=== PATIENT | male | born 1950 | race Caucasian/White ===

== ENCOUNTER 2016-09-22 07:45 | Day surgery (SDC) | payer BC ==
[~2016-09-22 07:45] MED LIST: Acetaminophen TAB* 325 MG PO PRN; Buffered Lidocaine 1% SYR 3ML* 3 ML/SYR SYRINGE INTRADERM ONE; Midazolam* 1 MG/ML 5 ML VIAL (5 MG) ONE; fentaNYL* 50 MCG/ML 2 ML VIAL (100 MCG VIAL) ONE
[2016-09-22] MEDS ORDERED: Cyclopentolate 1% OPTH.SOL* 2 ML BTL ONE (10:29)
[2016-09-22] MEDS ORDERED: Flurbiprofen 0.03% OPTH.SOL* 2.5 ML BTL ONE (10:29)
[2016-09-22] MEDS ORDERED: Tropicamide 1% OPTH.SOL* BTL ONE (10:29)
[2016-09-22] MEDS ORDERED: Neomycin/Polymy/Dex OPHTH.OIN* 3.5 GM ONE (10:29)
[2016-09-22] MEDS ORDERED: Lidocaine 1% MPF* 2 ML VIAL ONE (10:29)
[2016-09-22] MEDS ORDERED: Phenylephrine 2.5% OPTH.SOL* 2 ML BTL ONE (10:29)
[2016-09-22] MEDS ORDERED: Tetracaine 0.5% OPTH.SOL 4 ML* 1 DROP BTL ONE (10:29)
[2016-09-22 10:35] VITALS: BP 121/81
--- NOTE | 2016-09-22 23:52 | OP ---
DATE OF OPERATION: 09/22/16 [facility] DATE OF : 54 SURGEON: Dr. Adam Toth. DUCT LAYER HELPER: None. ANESTHESIOLOGIST: Raphael De Los Santos MD ANESTHESIA: Topical with intravenous sedation. PRE-OP DIAGNOSIS: Cataract, right eye. POST-OP DIAGNOSIS: Cataract, right eye. OPERATIVE PROCEDURE: Phacoemulsification and cataract extraction with posterior chamber intraocular lens implant, right eye. COMPLICATIONS: None. BLOOD LOSS: None. DESCRIPTION OF PROCEDURE: The patient was brought to the operating room and received a small amount of intravenous sedation. A drop of tetracaine was placed in his right eye. He was prepped and draped in the usual sterile fashion for ophthalmic surgery and attention was directed to the right eye where a speculum was placed. A paracentesis was created at the 11 o'clock position and 0.1 cc of 1 percent preservative-free lidocaine was injected into the anterior chamber followed by DisCoVisc. The eye was digitally stabilized while a 2.75 mm keratome was used to create a triplanar clear corneal incision at the 9 o'clock position. A continuous curvilinear capsulorrhexis was created with a cystotome and Utrata forceps. BSS on a cannula was used to hydrodissect the lens from the capsule. Phacoemulsification was performed in a divide-and- conquer technique to create four fragments which were removed. Residual cortical material was removed with irrigation and aspiration. DisCoVisc was used to inflate the capsular bag and an AU00T0 19.5 diopter lens was folded and inserted into the capsular bag. DisCoVisc was removed using irrigation and aspiration. BSS on a cannula was used to hydrate the corneal stroma and seal the wound. At the end of the case the pupil was round and the lens was centered. The eye was of normal pressure and the wound was water tight. The speculum was removed and topical Maxitrol ointment was placed on the surface of the eye. The eye was closed, patched and shielded and the patient was sent to the recovery room in stable condition with post operative instructions and follow-up appointment given. [id number] #: [id number] MTDD
== END 2016-09-22 10:04 | disposition home or self-care (01) ==
LOC: OREAST 07:45
PROVIDERS: ATTEND Ophthalmology
DX: H25.13 Age-related nuclear cataract, bilateral (principal); H25.041 Posterior subcapsular polar age-related cataract, right eye; Z86.73 Personal history of transient ischemic attack (TIA), and cerebral infarction without residual deficits; Z88.8 Allergy status to other drugs, medicaments and biological substances; K21.9 Gastro-esophageal reflux disease without esophagitis; N40.0 Benign prostatic hyperplasia without lower urinary tract symptoms; G47.33 Obstructive sleep apnea (adult) (pediatric); E04.9 Nontoxic goiter, unspecified; E78.4 Other hyperlipidemia; L57.0 Actinic keratosis; F52.21 Male erectile disorder; F17.290 Nicotine dependence, other tobacco product, uncomplicated
CPT/HCPCS: A9270-GY; J2250; J3010; V2632

== ENCOUNTER 2018-04-13 08:29 | Emergency (ER) | payer BC, MEDICARE ==
[2018-04-13 08:59] VITALS: BP 132/82
--- NOTE | 2018-04-13 10:09 | UC ---
Hand/Wrist HPI - HPI Summary HPI Summary: The patient is a 67-year-old male who fell and injured his right wrist yesterday. He is right hand dominant. He has never injured his right wrist in the past. He has minimal pain at rest. His pain markedly increases with dorsiflexion of the wrist. - History Of Current Complaint Chief Complaint: UCUpperExtremity Stated Complaint: WRIST INJURY Time Seen by Provider: 04/13/18 09:42 Hx Obtained From: Patient Onset/Duration: Sudden Onset, Lasting Hours Severity Initially: Severe Severity Currently: Mild Pain Intensity: 3 - 8 with movement Pain Scale Used: 0-10 Numeric Character Of Pain: Aching Aggravating Factor(s): Movement Alleviating Factor(s): Rest Associated Signs And Symptoms: Positive: Swelling Related History: Dominant Hand Right Hands: 1 - tender/swollen, no snuff box tenderness - Allergies/Home Medications Allergies/Adverse Reactions: Allergies Allergy/AdvReac Type Severity Reaction Status Date / Time phenobarbital AdvReac Mild "frozen Verified 04/13/18 08:59 shoulder syndrome" Home Medications: Home Medications NK [No Home Medications Reported] 04/13/18 [History Confirmed 04/13/18] PMH/Surg Hx/FS Hx/Imm Hx Previously Healthy: Yes Neurological History: Other Other Neurological History: AVM - Surgical History Surgical History: Yes Surgery Procedure, Year, and Place: avm REMOVED 2000. inguinal HERNIA REPAIR 1981. tonsillectomy as baby - Family History Known Family History: Positive: Cardiac Disease, Hypertension - Social History Alcohol Use: Daily Alcohol Amount: 4-5 wine per day Substance Use Type: None Smoking Status (MU): Former Smoker Type: Cigars Amount Used/How Often: daily Have You Smoked in the Last Year: Yes - Occassional cigar. When Did the Patient Quit Smoking/Using Tobacco: quits every 6 months - only smokes a pipe Review of Systems Constitutional: Negative Skin: Negative Eyes: Negative ENT: Negative Respiratory: Negative Cardiovascular: Negative Gastrointestinal: Negative Genitourinary: Negative Motor: Negative Neurovascular: Negative Musculoskeletal: Arthralgia Neurological: Negative Psychological: Negative All Other Systems Reviewed And Are Negative: Yes Physical Exam Triage Information Reviewed: Yes Appearance: Well-Appearing, No Pain Distress, Well-Nourished Vital Signs: Initial Vital Signs Temp 97.5 F 04/13/18 08:55 Pulse 78 04/13/18 08:55 Resp 14 04/13/18 08:55 BP 132/82 04/13/18 08:55 Pulse Ox 97 04/13/18 08:55 Eyes: Positive: Conjunctiva Clear ENT: Positive: Hearing grossly normal. Negative: Nasal congestion, Nasal drainage, Trismus, Muffled voice, Hoarse voice Neck: Positive: Supple Respiratory: Positive: Lungs clear, Normal breath sounds, No respiratory distress Cardiovascular: Positive: RRR, No Murmur Musculoskeletal: Positive: ROM Limited @ - dorsum right wristright wrist limited dorsiflexion, Edema @ Neurological: Positive: Alert Psychological Exam: Normal Skin Exam: Normal Diagnostics - Radiology No standard instances Xray Interpretation: Positive (See Comments) - 1. NO FRACTURE IS SEEN. 2. THERE IS WIDENING OF THE SCAPHOLUNATE JOINT SPACE SUGGESTIVE OF A SCAPHOLUNATE LIGAMENT TEAR. THIS COULD BE FURTHER EVALUATED WITH AN MRI OF [facility] Radiology Interpretation Completed By: Radiologist Hand/Wrist Course/Dx - Differential Dx/Diagnosis Provider Diagnoses: right wrist scapho-lunate ligament tear Discharge - Sign-Out/Discharge Documenting (check all that apply): Patient Departure All imaging exams completed and their final reports reviewed: Yes - Discharge Plan Condition: Stable Disposition: HOME Patient Education Materials: Wrist Sprain (ED) Referrals: Elvis Mott MD [Medical Doctor] - As Soon As Possible Additional Instructions: your XR and examine are consistent with a scapho-lunate ligament tear you need to see an orthopedist for follow up splint tylenol or advil for pain - Billing Disposition and Condition Condition: STABLE Disposition: Home
--- NOTE | 2018-04-13 10:19 | RAD ---
INDICATION: Right wrist injury. TECHNIQUE: 3 views of the right wrist were obtained. FINDINGS: There is widening of the scapholunate joint space. No fracture is seen. There is slight dorsal tilting of the lunate bone. IMPRESSION: 1. NO FRACTURE IS SEEN. 2. THERE IS WIDENING OF THE SCAPHOLUNATE JOINT SPACE SUGGESTIVE OF A SCAPHOLUNATE LIGAMENT TEAR. THIS COULD BE FURTHER EVALUATED WITH AN MRI OF THE WRIST.
== END 2018-04-13 10:43 | disposition home or self-care (01) ==
LOC: UCEAST 08:29
DX: S63.591A Other specified sprain of right wrist, initial encounter (principal); Z88.8 Allergy status to other drugs, medicaments and biological substances; Z87.891 Personal history of nicotine dependence; X58.XXXA Exposure to other specified factors, initial encounter; Y92.9 Unspecified place or not applicable
CPT/HCPCS: 99212; G0463

== ENCOUNTER 2018-06-07 09:32 | Day surgery (SDC) | payer MEDICARE ==
[~2018-06-07 09:32] MED LIST changes: -Acetaminophen TAB* 325 MG PO PRN; +Buffered Lidocaine 0.9% SYRIN* 5 ML/SYR SYRINGE INTRADERM ONE; -Buffered Lidocaine 1% SYR 3ML* 3 ML/SYR SYRINGE INTRADERM ONE; -Midazolam* 1 MG/ML 5 ML VIAL (5 MG) ONE; -fentaNYL* 50 MCG/ML 2 ML VIAL (100 MCG VIAL) ONE
[2018-06-07] MEDS ORDERED: Midazolam* 1 MG/ML 2 ML VIAL (2 MG) ONE ×3 (11:11→11:18)
[2018-06-07] MEDS ORDERED: Propofol* 10 MG/ML 20 ML BTL ONE (11:21)
[2018-06-07] MEDS ORDERED: Lidocaine 2% PF * 5 ML VIAL ONE (11:21)
[2018-06-07] MEDS ORDERED: fentaNYL* 50 MCG/ML 2 ML VIAL (100 MCG VIAL) ONE (11:30)
[2018-06-07 12:02] VITALS: BP 125/88
[2018-06-07] MEDS ORDERED: Neomycin/Polymy/Dex OPHTH.OIN* 3.5 GM ONE (12:14)
[2018-06-07] MEDS ORDERED: Phenylephrine 2.5% OPTH.SOL* 2 ML BTL ONE (12:14)
[2018-06-07] MEDS ORDERED: Tetracaine 0.5% OPTH.SOL 4 ML* 1 DROP BTL ONE (12:14)
[2018-06-07] MEDS ORDERED: Lidocaine 1%* 5 ML VIAL ONE (12:14)
[2018-06-07] MEDS ORDERED: Ketorolac 0.5% OPHTH (NF) 0.5 % 5 ML BTL ONE (12:14)
[2018-06-07] MEDS ORDERED: Tropicamide 1% OPTH.SOL* BTL ONE (12:14)
[2018-06-07] MEDS ORDERED: Cyclopentolate 1% OPTH.SOL* 2 ML BTL ONE (12:14)
--- NOTE | 2018-06-08 07:01 | OP ---
DATE OF OPERATION: 06/07/18 [facility] DATE OF : 54. SURGEON: Dr. Adam Toth. CREW SCHEDULER: None. ANESTHESIA: Topical with intravenous sedation. PRE-OP DIAGNOSIS: Cataract, left eye. POST-OP DIAGNOSIS: Cataract, left eye. OPERATIVE PROCEDURE: Phacoemulsification and cataract extraction with posterior chamber intraocular lens implant, left eye. COMPLICATIONS: None. BLOOD LOSS: None. DESCRIPTION OF PROCEDURE: The patient was brought to the operating room and received a small amount of intravenous sedation. A drop of Tetracaine was placed in his left eye. He was prepped and draped in the usual sterile fashion for ophthalmic surgery and attention was directed to the left eye where a speculum was placed. A paracentesis was created at the 5 o'clock position and 0.1 cc of 1 percent preservative-free Lidocaine was injected into the anterior chamber followed by DisCoVisc. The eye was digitally stabilized while a 2.75 mm keratome was used to create a triplanar clear corneal incision at the 3 o' clock position. A continuous curvilinear capsulorrhexis was created with a cystotome and Utrata forceps. BSS on a cannula was used to hydrodissect the lens from the capsule. Phacoemulsification was performed in a divide-and- conquer technique to create four fragments which were removed. Residual cortical material was removed with irrigation and aspiration. DisCoVisc was used to inflate the capsular bag and an AU00T0 20.5 diopter lens was folded and inserted into the capsular bag. DisCoVisc was removed using irrigation and aspiration. BSS on a cannula was used to hydrate the corneal stroma and seal the wound. At the end of the case the pupil was round and the lens was centered. The eye was of normal pressure and the wound was water tight. The speculum was removed and topical Maxitrol ointment was placed on the surface of the eye. The eye was closed, patched and shielded and the patient was sent to the recovery room in stable condition with post operative instructions and followup appointment given. [id number]/CPS #: [id number] MTDD
== END 2018-06-07 12:25 | disposition home or self-care (01) ==
LOC: OREAST 09:32
PROVIDERS: ATTEND Ophthalmology
DX: H25.042 Posterior subcapsular polar age-related cataract, left eye (principal); G47.33 Obstructive sleep apnea (adult) (pediatric); E78.5 Hyperlipidemia, unspecified; Z86.73 Personal history of transient ischemic attack (TIA), and cerebral infarction without residual deficits; K21.9 Gastro-esophageal reflux disease without esophagitis
CPT/HCPCS: A9270-GY; J2250; J2704; J3010; V2632